=== PATIENT | female | born 1985 | race African-American/Black ===

== ENCOUNTER → 2017-06-08 | Day surgery (SDC) | payer OTHER ==
[~2017-06-08] VITALS: Ht 165.1 cm; Wt 61.0 kg
[~2017-06-08] MED LIST: ACETAMINOPHEN/HYDROcodone 325 MG/5 MG TAB PO PRN; BUPIVACAINE PF 0.75% DEX-WATER INJ 2 ML AMP ONE; CHLORHEXIDINE GLUCONATE 2 % 1 PACK (2 CLOTHS) TOPICAL PRN; DO NOT ADM ANY ANTICOAGULANT DRUGS PRN; LACTATED RINGER'S 1000 ML IV PRN; METOPROLOL TARTRATE 25 MG TAB PO PRN; ONDANSETRON HCL 4 MG/2 ML VIAL IV PUSH ONE; POVIDONE IODINE 5% (ANTISEPSIS KIT) 4 APPLICATIONS EACH NARE PRN; PREN29TA PO; SODIUM CHLORID 0.9% 500 ML IV PRN
[2017-06-08 18:50] VITALS: BP 121/75; PULSE 83; RESP 16; TEMP 98.9; O2SAT 100
--- NOTE | 2017-06-09 08:09 | MP ---
cc: Declan Novak MD DATE OF OPERATION: 06/08/2017 PREOPERATIVE DIAGNOSIS: Incompetent cervix. POSTOPERATIVE DIAGNOSIS: Incompetent cervix. PROCEDURE PERFORMED: Cervical cerclage. ANESTHESIA: Spinal. SURGEON: Missy Novak MD FINDINGS: The cervix looked normal. It was at least 3 cm long on exam. The uterus was 2 fingerbreadths below the umbilicus. The vagina was clean. The cerclage was placed with a #1 PDS with excellent results. COMPLICATIONS: None. COUNTS: The counts were correct. ESTIMATED BLOOD LOSS: Minimal. CONDITION: The patient tolerated the procedure well and went to the recovery room in good condition. INDICATION FOR THE PROCEDURE: This is a newly patient who has had perfect history for incompetent cervix. She lost her last baby at 22 weeks and the baby . She had an ultrasound which revealed a fairly long cervix 4 cm and a normal-appearing fetus. After discussion of the risks and the benefits of the procedure she elected to proceed with cervical cerclage. PROCEDURE IN DETAIL: The patient was taken to the operating room and identified by name band and verbally given a spinal anesthetic and placed in dorsal lithotomy position. She was prepped and draped in the usual sterile fashion for vaginal surgery and a timeout was taken. Once a timeout was complete, we proceeded with an examination under anesthesia. A weighted speculum was placed in the vagina. The anterior lip of the cervix was grasped with a single-tooth tenaculum. A pursestring suture with #1 PDS suture was then placed and tightened with excellent results. Bleeding was minimal. At this point, we did another exam, felt nice and tight. The cervix was closed and the instruments were removed. She tolerated the procedure well and went to the recovery room in good condition. Declan Novak MD RJV/TL , 07:52 AM , 08:09 AM
== END | disposition home or self-care (01) ==
LOC: HSDC 10:02
PROVIDERS: ATTEND Obstetrics & Gynecology
DX: O34.32 Maternal care for cervical incompetence, second trimester (principal); O99.012 Anemia complicating pregnancy, second trimester; Z3A.17 17 weeks gestation of pregnancy
CPT/HCPCS: 00948; 59320; J2405; J7120; J3010

== ENCOUNTER 2017-10-28 21:34 | Inpatient (IN) ==
--- NOTE | 2017-10-28 22:35 | ED ---
History of Present Illness Primary Care Physician: NOT REQUIRED History of Present Illness: 32-year-old 2 para 0100 at 38 weeks gestation who comes in tonight with the complaint of increasing contractions. She had a cerclage removed by Dr. Palomares this week and reports that she was 2-3 cm dilated after its removal. She denies any leakage of fluid but has had little bit of spotting. She reports good movement. Review of Systems All other systems reviewed negative except as stated in HPI PMFSH - Medical / Surgical Hx Neg / Unobtainable Medical Problems Denied: Yes - Medical History Medical History: Medical History (Last Updated 09/27/17 @ 20:49 by Benny Whitehead MD) Cervical cerclage suture present in third trimester Cervical cerclage suture present in third trimester Cervical incompetence during - Surgical History Surgical History: Surgical History (Last Updated 10/28/17 @ 22:32 by Rasta Alvarez MD) History of tonsillectomy Hx of cholecystectomy - Tobacco History Second Hand Smoke Exposure: Yes Tobacco Use In Past 30 Days: Yes Smoking Status: Former smoker (patient states she has stopped smoking past 2 weeks) Tobacco Type: Cigarettes Medications and Allergies Allergies Allergy/AdvReac Type Severity Reaction Status Date / Time No Known Allergies Allergy Verified 10/28/17 22:22 Exam Vital signs: Vital Signs 10/28/17 21:57 Temperature 98.3 F Pulse Rate 96 H Respiratory Rate 18 Blood Pressure 127/77 Intake & Output 10/28/17 10/28/17 10/29/17 06:59 18:59 06:59 Weight 74 kg Narrative: GENERAL: Well-nourished, well-developed patient. SKIN: Warm and dry. HEAD: Normocephalic and atraumatic. EYES: No scleral icterus. No injection or drainage. ENT: No nasal drainage noted. Mucous membranes pink. Airway patent. NECK: Supple, trachea midline. No JVD. CARDIOVASCULAR: Regular rate and rhythm without murmurs, gallops, or rubs. RESPIRATORY: Breath sounds equal bilaterally. No accessory muscle use. ABDOMEN/GI: Abdomen soft, non-tender, bowel sounds present, no rebound, no guarding Gravid to [-] weeks size Fundal Height: [-38] GENITOURINARY: External Genitalia: intact and normal in appearance BUS glands: [Negative-] Cervix: [-] Dilatation: [-4] Effacement: [-80] Station: [--2] Presentation: [-Vertex] Membranes: [intact] Uterine Contractions: [Irregular-] FHT's: Category: [-1] Baseline: [-] Reactive: [Yes-] Variability: [-] Decels: [-] EXTREMITIES: No cyanosis or edema. BACK: Nontender without obvious deformity. No CVA tenderness. NEUROLOGICAL: Awake and alert. Motor and sensory grossly within normal limits. Five out of 5 muscle strength in all muscle groups. Normal speech. Assessment and Plan - Plan Assessment: 32-year-old female at 38 weeks gestation in prodromal labor Plan: Admit for labor management. Patient reports that she is group B strep negative Discharge Plan - Discharge Disposition Patient Disposition: 30 Still Patient - Discharge Condition Condition: Stable - Physicians Team ED Provider: Rasta Alvarez Primary Care Provider: NOT REQUIRED, - Rxs /Orders / Referrals /Forms Prescriptions: No Action famotidine [Pepcid] 20 mg Tablet 20 mg PO BID Qty: 60 RF: 1 ondansetron [Zofran ODT] 4 mg Tablet,Disintegrating 4 mg PO Q6-8H PRN (Reason: Nausea And Vomiting) Qty: 20 RF: 1 - Discharge Instructions Print Language: Wallisian
[2017-10-28] MEDS ORDERED: Naloxone Inj 0.4 MG/ML Vial IV.PUSH PRN (22:36)
[2017-10-28] MEDS ORDERED: Sod Chloride 0.9% Inj 1,000 ML IV.CONT PRN (22:36)
[2017-10-28] MEDS ORDERED: fentaNYL Citrate Inj 100 MCG/2 ML Ampul IV.PUSH PRN ×2 (22:36)
[2017-10-28] MEDS ORDERED: Oxytocin 30 Units/500ml Premix 30 UNITS/500 ML BAG IV.SIG ONE (22:36)
[2017-10-28] MEDS ORDERED: Sodium Chlor 0.9% Inj 500 ML IV.SIG PRN (22:36)
[2017-10-28] MEDS ORDERED: Citric Acid/Sodium Citrate Liq 30 ML UDC PO SCH (22:45)
[2017-10-28 23:33] LABS: Baso # (Auto) 0.1 th/mm3 (0.0-0.2); Baso % (Auto) 0.7 % (0.0-2.0); Eos % (Auto) 0.2 % (0.0-4.0); Hemoglobin 13.4 gm/dL (11.6-15.3); Lymph # (Auto) 2.1 th/mm3 (1.0-4.8); Lymph % (Auto) 23.4 % (9.0-44.0); Mean Corpuscular HGB Conc 34.4 % (32.0-36.0); Mean Corpuscular Hemoglobin 31.9 pg (27.0-34.0); Mean Corpuscular Volume 92.7 fL (80.0-100.0); Mean Platelet Volume 8.6 fL (7.0-11.0); Mono # (Auto) 0.6 th/mm3 (0.0-0.9); Mono % (Auto) 6.5 % (0.0-8.0); Neut # (Auto) 6.1 th/mm3 (1.8-7.7); Neut % (Auto) 69.2 % (16.0-70.0); Platelet Count 252 th/mm3 (150-450); Red Blood Count 4.21 mil/mm3 (4.00-5.30); Red Cell Distribution Width 14.6 % (11.6-17.2); White Blood Count 8.9 th/mm3 (4.0-11.0)
[2017-10-29] MEDS ORDERED: fentaNYL 2MCG-Bupiv 0.125% Epi 150 ML EPIDURAL ONE ×2 (01:02→08:00)
[2017-10-29] MEDS ORDERED: Bupivacaine PF 0.25% Inj 30 ML Vial ONE (01:13)
[2017-10-29 02:09] LABS: Amphetamine Screen,Urine Neg (Neg); Barbiturate Screen,Urine Neg (Neg); Cannabinoid Screen,Urine Neg (Neg); Cocaine Screen,Urine Neg (Neg)
[2017-10-29 02:12] LABS: Opiate Screen,Urine Neg (Neg)
[2017-10-29 02:52] LABS: Bacteria,Urine Rare /hpf; Bilirubin,Urine Negative (Negative); Clarity,Urine Hazy (Clear); Color,Urine Straw (Yellw/Straw); Glucose,Urine (UA) Negative (Negative); Leukocyte Esterase,Urine Large (Negative); Mucus,Urine Few /lpf (Occasional); Nitrite,Urine Negative (Negative); Specific Gravity,Urine 1.006 (1.002-1.035); Squamous Epithelial Cell,Urine 3 /hpf (0-5)
[2017-10-29] MEDS ORDERED: fentaNYL Citrate Inj 100 MCG/2 ML Ampul EPIDURAL ONE (07:49)
--- NOTE | 2017-10-29 07:55 | P.OBGPN ---
S: Doing well, pain controlled, comfortable with epidural, no RAMESH vision change or epigastric pain O: Exam: 6/80/-2, AROM, clear fluid FHTs: 130s, moderate variability, accelerations present, no decelerations TOCO: Contractions every 10-15 minutes A/P 32-year-old here in labor at 38 weeks and 1 day 1. IUP: Category 1 tracing, continuous monitoring -Cephalic, female fetus, GBS negative, estimated weight 7.5 pounds 2. Labor: AROM this check, begin Pitocin, anticipate vaginal delivery. 3. Elevated blood pressures: CMP and urine protein creatinine ratio pending, CBC normal. No signs or symptoms of preeclampsia. 4. History of delivery: Last 22 weeks, nonviable, status post cerclage this and removal last week.
[2017-10-29 08:55] LABS: Protein/Creatinine Ratio,Urine 0.32 (0.00-0.14)
[2017-10-29] MEDS ORDERED: Oxytocin 30 Units/500ml Premix 30 UNITS/500 ML BAG IV.CONT PRN ×2 (09:00→12:00)
[2017-10-29] MEDS ORDERED: Famotidine 20 MG Tablet PO SCH (09:00)
[2017-10-29 09:11] LABS: Albumin 2.9 g/dL (3.4-5.0); Anion Gap 10 meq/L (5-15); Aspartate Aminotransferase 18 U/L (15-37); Blood Urea Nitrogen 8 mg/dL (7-18); Calcium 8.8 mg/dL (8.5-10.1); Carbon Dioxide 24.1 meq/L (21.0-32.0); Chloride 104 meq/L (98-107); Glomerular Filtration Rate Greater Than 89 mL/min (>89); Glucose,Random 70 mg/dL (74-106); Potassium 3.7 meq/L (3.5-5.1); Sodium 138 meq/L (136-145)
[2017-10-29 09:15] LABS: Alanine Aminotransferase 16 U/L (10-53); Alkaline Phosphatase 102 U/L (45-117)
[2017-10-29] MEDS ORDERED: Bisacodyl 10 MG Supp RECTAL PRN (12:00)
[2017-10-29] MEDS ORDERED: Acetaminophen 325 MG Tablet PO PRN (12:00)
[2017-10-29] MEDS ORDERED: Witch Hazel 50%/Glyderin 12.5% 40 Pad Jar RECTAL PRN (12:00)
[2017-10-29] MEDS ORDERED: Naloxone Inj 0.4 MG/ML Vial IV.PUSH PRN (12:00)
[2017-10-29] MEDS ORDERED: Benzocaine 20% Top Spray 60 ML Can TOPICAL PRN (12:00)
[2017-10-29] MEDS ORDERED: Zolpidem Tartrate 5 MG Tablet PO PRN (12:00)
--- NOTE | 2017-10-29 12:06 | P.OP ---
Date of procedure: 10/29/17 Surgeon: Gulshan Gardner MD Operation and Findings: Preoperative diagnosis: 1. Intrauterine at 38 weeks and 1 day 2. Preeclampsia without severe features 3. Tobacco use 4. History of previable delivery 5. History of cerclage this . Postop diagnosis 1. Same as above status post Procedure 1. Term spontaneous vaginal delivery Surgeon Dr. Gulshan Gardner Charge Attendant: Labor and delivery nursing staff Findings: 1. Viable female at 1138, Apgars 9 and 9. [place] weight 2995 g 2. Intact placenta with three-vessel cord at 1141 3. Bilateral labial lacerations repaired with running 3-0 Vicryl Anesthesia: Epidural Specimen: Placenta to disposal Estimated blood loss: 200 cc Fluid replacement: Lactated Ringer's and Pitocin Urine output: None recorded DVT prophylaxis: None Antibiotics: None required Counts: correct x2 Time out done: yes Disposition: Stable to Indications: Patient is a 32-year-old now P1101 who presented in labor at 38 weeks and 1 day, she was artificially ruptured, progressed to complete with Pitocin for augmentation with reassuring heart tones. When she was complete I was called to the room. Description of procedure: The patient began pushing after the bed was broken down, the head upon was allowed to restitute naturally for delivery with a supported perineum, with gentle downward guidance the anterior shoulder was delivered followed by gentle upper guidance for the posterior shoulder, the torso and lower extremities were delivered with ease and with continued perineal support. The had spontaneous cry and was placed on mom's abdomen for skin to skin contact, we allowed delayed cord clamping. After the cord was clamped and cut, cord blood was obtained. Pitocin was bolused and with fundal massage the placenta was delivered, there is minimal uterine bleeding and uterus was firm. The perineum, vagina and cervix were inspected and found in both bilateral labial lacerations were repaired with running 3-0 Vicryl as above. The patient tolerated the procedure well and was left in the birthing suite with her .
[2017-10-29] MEDS ORDERED: Measles/Mumps/Rubella Vaccine Inj 0.5 ML Vial SQ ONE (16:00)
[2017-10-29] MEDS ORDERED: Varicella Vaccine Live 1350 UNITS/0.5 ML Vial SQ ONE (16:00)
[2017-10-29] MEDS ORDERED: Rho Immune Globulin Inj 1,500 UNIT/1.3 ML Vial IM ONE (16:00)
[2017-10-29] MEDS ORDERED: Diphtheria/Tetanus/Pertussis Vaccine Inj 0.5 ML Syringe IM ONE (16:00)
[2017-10-29] MEDS: Senna/Docusate Sodium 8.6/50 MG Tablet PO SCH (22:12)
[2017-10-30] MEDS: Senna/Docusate Sodium 8.6/50 MG Tablet PO SCH ×2 (08:38→20:37)
--- NOTE | 2017-10-30 09:37 | P.PNOB ---
Subjective Post day: 1 Interval history: Doing well, ambulating without difficulty, voiding spontaneously, tolerating diet, no nausea vomiting, vaginal bleeding less than menses Objective Vital Signs/I&O: Vital Signs 10/29/17 09:40 10/29/17 09:45 10/29/17 09:55 Temperature Pulse Rate 96 H 99 H 103 H Respiratory Rate 18 Blood Pressure 101/63 120/83 10/29/17 10:15 10/29/17 10:40 10/29/17 11:10 Temperature 97.9 F Pulse Rate 92 H 94 H 91 H Respiratory Rate 18 Blood Pressure 115/76 125/85 130/85 10/29/17 11:35 10/29/17 11:55 10/29/17 12:02 Temperature Pulse Rate 106 H 115 H Respiratory Rate 16 Blood Pressure 125/80 132/85 10/29/17 12:36 10/29/17 12:54 10/29/17 13:52 Temperature 97.7 F Pulse Rate 99 H 97 H 83 Respiratory Rate 20 Blood Pressure 144/95 H 134/100 H 142/89 H 10/29/17 20:00 Temperature 98.3 F Pulse Rate 102 H Respiratory Rate 18 Blood Pressure 148/97 H Intake & Output 10/29/17 10/30/17 10/30/17 18:59 06:59 18:59 Intake Total 1000 / 1000 Balance 1000 / 1000 Weight 74 kg Intake: IV 1000 / 1000 LR 1000 mL Inj 1,000 ML @ 125 1000 / 1000 mls/hr IV.CONT .Q8H [facility] Rx#: [id number] Other: Weight On Admission 74 kg Result Diagrams: 10/28/17 23:15 10/29/17 07:25 Objective Remarks: GENERAL: Well-nourished, well-developed patient. CARDIOVASCULAR: Regular rate and rhythm without murmurs, gallops, or rubs. RESPIRATORY: Breath sounds equal bilaterally. No accessory muscle use. ABDOMEN/GI: Abdomen soft, non-tender. Fundus: Firm, non-tender at umbilicus. GENITOURINARY: Light to moderate bleeding. EXTREMITIES: No cyanosis or edema, non-tender, without signs of DVT. Medications and IVs: Active Medications Acetaminophen (Tylenol) 650 mg PO Q4H PRN PRN Reason: PAIN SCALE 1 TO 2 Al Hydroxide/Mg Hydroxide (Milk Of Magnesia Liq) 30 ml PO Q12H PRN PRN Reason: Mild Constipation Benzocaine (Americaine 20% Top [place]) 1 spray TOPICAL Q4H PRN PRN Reason: For Perineum Discomfort Last Admin: 10/29/17 22:13 Dose: 1 spray Bisacodyl (Dulcolax Supp) 10 mg RECTAL DAILY PRN PRN Reason: SEVERE CONSITIPATION Oxytocin (Pitocin 30 Units/Ns 500 Ml Premix) 30 units in 500 mls @ 100 mls/hr IV.CONT UNSCH PRN PRN Reason: Heavy bleeding Ibuprofen (Motrin) 800 mg PO Q8H PRN PRN Reason: For Cramping Last Admin: 10/30/17 08:38 Dose: 800 mg Lactulose (Lactulose Liq) 30 ml PO DAILY PRN PRN Reason: SEVERE CONSITIPATION Naloxone HCl (Narcan Inj) 0.1 mg IV.PUSH Q2M PRN PRN Reason: for opiate reversal Ondansetron HCl (Zofran Odt) 4 mg PO Q6H PRN PRN Reason: NAUSEA OR VOMITING Last Admin: 10/29/17 14:39 Dose: 4 mg Oxycodone/Acetaminophen (Percocet 5/325 Mg) 2 tab PO Q4H PRN PRN Reason: PAIN SCALE 6 TO 10 Oxycodone/Acetaminophen (Percocet 5/325 Mg) 1 tab PO Q4H PRN PRN Reason: PAIN SCALE 3 TO 5 Senna/Docusate Sodium (Chandrika-Colace) 1 tab PO BID [facility] Last Admin: 10/30/17 08:38 Dose: 1 tab Sennosides (Senokot) 17.2 mg PO Q12H PRN PRN Reason: Moderate Constipation Sodium Chloride (Ns Flush) 2 ml IV.FLUSH BID [facility] Last Admin: 10/29/17 22:16 Dose: 2 ml Sodium Chloride (Ns Flush) 2 ml IV.FLUSH PRN PRN PRN Reason: FLUSH AFTER USING IV ACCESS Witch Chanell/Glycerin (Tucks Pads) 1 applicatio RECTAL QID PRN PRN Reason: HEMORRHOIDS Last Admin: 10/29/17 22:13 Dose: 1 applicatio Zolpidem Tartrate (Ambien) 5 mg PO HS PRN PRN Reason: SLEEP Assessment and Plan - Plan 32-year-old status post at 38 weeks and 1 day 1. day #1: Afebrile, vital signs stable, meeting milestones, discussed precautions and follow-up. Anticipate discharge home in the next 24 hours -Female 2. Preeclampsia without severe features: No signs or symptoms of severe features, continue to trend blood pressures, follow-up one week in the office for blood pressure check 2. Thyroid disease?: Patient states she was hypothyroid in the past, she was not on medication during the , TFTs I can find per chart records suggest possible hyperthyroidism, we collected TFTs today and pending. Patient asymptomatic.
[2017-10-30 10:37] LABS: Free T4 (Free Thyroxine) 0.9 ng/dL (0.76-1.46); Thyroid Stimulating Hormone 0.733 uIU/mL (0.358-3.740)
[2017-10-31] MEDS: Senna/Docusate Sodium 8.6/50 MG Tablet PO SCH (09:05)
--- NOTE | 2017-10-31 10:17 | P.PNOB ---
Subjective Post day: 2 Objective Vital Signs/I&O: Vital Signs 10/30/17 20:30 10/31/17 08:00 Temperature 97.9 F 98.1 F Pulse Rate 98 H 92 H Respiratory Rate 16 18 Blood Pressure 133/86 107/79 Result Diagrams: 10/28/17 23:15 10/29/17 07:25 Objective Remarks: GENERAL: Well-nourished, well-developed patient. CARDIOVASCULAR: Regular rate and rhythm without murmurs, gallops, or rubs. RESPIRATORY: Breath sounds equal bilaterally. No accessory muscle use. ABDOMEN/GI: Abdomen soft, non-tender. Fundus: Firm, non-tender at umbilicus. GENITOURINARY: Light to moderate bleeding. EXTREMITIES: No cyanosis or edema, non-tender, without signs of DVT. Medications and IVs: Active Medications Acetaminophen (Tylenol) 650 mg PO Q4H PRN PRN Reason: PAIN SCALE 1 TO 2 Al Hydroxide/Mg Hydroxide (Milk Of Magnesia Liq) 30 ml PO Q12H PRN PRN Reason: Mild Constipation Benzocaine (Americaine 20% Top [place]) 1 spray TOPICAL Q4H PRN PRN Reason: For Perineum Discomfort Last Admin: 10/29/17 22:13 Dose: 1 spray Bisacodyl (Dulcolax Supp) 10 mg RECTAL DAILY PRN PRN Reason: SEVERE CONSITIPATION Oxytocin (Pitocin 30 Units/Ns 500 Ml Premix) 30 units in 500 mls @ 100 mls/hr IV.CONT UNSCH PRN PRN Reason: Heavy bleeding Ibuprofen (Motrin) 800 mg PO Q8H PRN PRN Reason: For Cramping Last Admin: 10/31/17 09:04 Dose: 800 mg Lactulose (Lactulose Liq) 30 ml PO DAILY PRN PRN Reason: SEVERE CONSITIPATION Naloxone HCl (Narcan Inj) 0.1 mg IV.PUSH Q2M PRN PRN Reason: for opiate reversal Ondansetron HCl (Zofran Odt) 4 mg PO Q6H PRN PRN Reason: NAUSEA OR VOMITING Last Admin: 10/29/17 14:39 Dose: 4 mg Oxycodone/Acetaminophen (Percocet 5/325 Mg) 2 tab PO Q4H PRN PRN Reason: PAIN SCALE 6 TO 10 Oxycodone/Acetaminophen (Percocet 5/325 Mg) 1 tab PO Q4H PRN PRN Reason: PAIN SCALE 3 TO 5 Last Admin: 10/31/17 07:47 Dose: 1 tab Senna/Docusate Sodium (Chandrika-Colace) 1 tab PO BID [facility] Last Admin: 10/31/17 09:05 Dose: 1 tab Sennosides (Senokot) 17.2 mg PO Q12H PRN PRN Reason: Moderate Constipation Sodium Chloride (Ns Flush) 2 ml IV.FLUSH BID [facility] Last Admin: 10/31/17 00:25 Dose: Not Given Sodium Chloride (Ns Flush) 2 ml IV.FLUSH PRN PRN PRN Reason: FLUSH AFTER USING IV ACCESS Witch [place]ell/Glycerin (Tucks Pads) 1 applicatio RECTAL QID PRN PRN Reason: HEMORRHOIDS Last Admin: 10/29/17 22:13 Dose: 1 applicatio Zolpidem Tartrate (Ambien) 5 mg PO HS PRN PRN Reason: SLEEP Assessment and Plan - Plan 32-year-old status post at 38 weeks and 1 day 1. day #2 pt doing well pain well managed with oral pain medication bonding with 2. Preeclampsia without severe features: labs wnl, VSS, will check bp in office 1 week 2. Thyroid disease: labs WNL Discharge Planning: dc home today
--- NOTE | 2017-10-31 10:25 | P.DS ---
Date of admission: 10/28/17 22:38 Primary care physician: NOT REQUIRED Anticipated date of discharge: 10/31/17 Brief History from admission: pt had history of loss at 22 week and diagnosed with incompetent cx, cerclage placed on 06/08/17. cerclage removed at 37 weeks. contractions at 38 weeks, admitted for labor routine care DS: Medications - Discharge Medications Prescriptions: ibuprofen 800 mg PO Q8H PRN #30 tab PRN Reason: For Cramping oxycodone-acetaminophen 1 tab PO Q4H PRN #10 tab PRN Reason: Pain, Moderate DS: Summary Hospital Course: 38 weeks labor routine care - Time Spent with Patient Total time spent providing and/or coordinating discharge services: Less than 30 minutes Exam Vital signs: Vital Signs 10/30/17 20:30 10/31/17 08:00 Temperature 97.9 F 98.1 F Pulse Rate 98 H 92 H Respiratory Rate 16 18 Blood Pressure 133/86 107/79 Narrative: see PP note Results Procedures completed during hospitalization: Labs on day of discharge: Labs from last 24 hours 10/30/17 09:51 TSH 0.733 Free T4 0.90 Discharge Plan - Discharge Disposition Patient Disposition: 01 Discharge Home - Discharge Condition Condition: Stable - Discharge Order Discharge Orders: Discharge Order (Routine); Ordered 10/31/17 Ordered By: Gulshan Gardner - Discharge Details Anticipated Discharge Date: 10/31/17 - Physicians Team Primary Care Provider: NOT REQUIRED, Attending Provider: Gulshan Gardner
== END 2017-10-31 15:20 | disposition home or self-care (01) ==
LOC: HOBED 21:34 → H2E 22:38 → H1EA 10-29 13:10 → H2E 10-29 13:27 → H1EA 10-29 13:37
PROVIDERS: ADMIT Obstetrics & Gynecology; ATTEND Obstetrics & Gynecology